=== PATIENT | female | born 1985 | race Caucasian/White ===

== ENCOUNTER → 2018-01-01 16:14 | Outpatient (CLI) | payer OTHER, MEDICAID, SELFPAY ==
[2018-01-01 16:57] LABS: Add Manual Diff / Slide Review NO; Basophils Percent Auto 0.1 % (0-2); Hematocrit 32.8 % (36-46); Hemoglobin 10.8 g/dL (12.0-16.0); Lymphocytes Percent Auto 21.8 % (25-40); Mean Corpuscular Hemoglobin 28.2 PG (26-34); Mean Corpuscular Volume 85.6 fL (80-100); Neutrophils Absolute Auto 8400 /uL (3000-5900); Neutrophils Percent Auto 71.1 % (50-75); Platelet Count 253 X10^3/uL (150-400); Red Blood Cell Count 3.83 X10^6/uL (4.0-5.2); Red Cell Distribution Width 13.6 % (11.6-14.8); White Blood Cell Count 11.8 X10^3/uL (4.5-11.0)
[2018-01-01 18:13] LABS: Hepatitis B Surface Antigen NEGATIVE s/c (NEGATIVE); Rubella Antibody IgG 74.3 IU/mL (>15)
[2018-01-01 18:25] LABS: Appearance Urine UA CLEAR; Bilirubin Urine UA NEGATIVE (NEGATIVE); Color Urine UA YELLOW; Glucose Urine UA NEGATIVE (Normal); Ketones Urine UA NEGATIVE (NEGATIVE); Leukocyte Esterase Urine UA TRACE (NEGATIVE); Nitrite Urine UA Negative (Negative); Occult Blood Urine UA NEGATIVE (Negative); Protein Urine UA NEGATIVE (Negative); Urobilinogen Urine UA 0.2 E.U./dL (0.2)
[2018-01-01 18:41] LABS: HIV 1 and 2 Antibody NEGATIVE (NEGATIVE); Hep C Virus Ab w/Reflex Quant NEGATIVE s/c (NEGATIVE)
[2018-01-01 18:44] LABS: RBC Urine None Seen (0-5/HPF)
[2018-01-01 18:46] LABS: WBC Urine 1-5/HPF (0-5/HPF)
[2018-01-01 18:47] LABS: Amorphous Sediment Urine 1+; Bacteria Urine Occasional (0-1); Squamous Epithelial Cell Urine 1-5 /HPF
[2018-01-03 13:50] LABS: HSV 2 IGG AB 6.38 index (< 0.90)
[2018-01-09 09:43] LABS: Rapid Plasma Reagin NON-REACTIVE
== END ==
PROVIDERS: PCP Family Medicine; Visit Provider Family Medicine
DX: Z34.90 Encounter for supervision of normal pregnancy, unspecified, unspecified trimester (principal)
CPT/HCPCS: 36415; 80055; 81003; 81015; 86695; 86696; 86703; 86787; 86803; 86850; 86900; 86901; 87086

== ENCOUNTER → 2018-01-30 14:02 | Outpatient (CLI) | payer OTHER, MEDICAID, SELFPAY ==
--- NOTE | 2018-01-30 14:03 | DI.US.S_ITS ---
PROCEDURE: US OB >= 14 WEEKS FETUS INDICATIONS: anatomy scan 18-20 weeks OUTSIDE/PRIOR DATING DATA: Last menstrual period (LMP): Unknown. LMP-based estimated date of delivery (IONA): N./A. First dating scan (date and location): 12/30/17. Estimated date of delivery (IONA) from first dating scan: 06/24/18. TECHNIQUE: Real-time scanning was performed of the fetus, with image documentation and biometric measurements. Endovaginal scanning: No COMPARISON: [facility], , OB >= 14 WK FETUS ADD GEST, 01/06/2018, 16:38. FINDINGS: General: A single living intrauterine gestation is present. Presentation: Vertex. Placenta: Placental position is posterior, without previa. Amniotic fluid index: 15.2 cm, normal range is 5-24 cm. heart rate: 149 beats per minute. Maternal cervical canal: 3.7 cm long. Normal lower limit is 2.5 cm. biometrics: Biparietal diameter: 20 weeks 1 day Head circumference: 19 weeks 4 days Abdominal circumference: 19 weeks 1 day Femur length: 18 weeks 6 days Estimated gestational age from initial scan: 19 weeks 2 days Composite gestational age from present scan: 19 weeks 3 days Estimated weight and percentile: 275 g; 36 percentile Measurement variability for biometric dating: +/- 7 days from 14 weeks to 15 weeks 6 days gestation, +/- 10 days from 16 weeks to 21 weeks 6 days gestation, +/- 2 weeks from 22 weeks to 27 weeks 6 days gestation, +/- 3 weeks for 28 weeks gestation or later. weight reference: 4500 g or EFW >90/95% is considered macrosomia or large for gestational age. EFW <10% is small for gestational age. EFW 5% or less is considered intra-uterine growth restriction. Anatomic survey: Neuro: Ventricles are non-dilated at less than 10 mm. Cisterna magna is normal at 3-11 mm. Cerebellum is normal in size and morphology. Nuchal skin fold: Normal at less than 6 mm between 14-21 weeks gestational age. Face: Nose and lips, facial profile are normal. Spine: No evidence for spina bifida. Heart: 4-chambered heart is present, with normal ventricular outflow tracts. Diaphragm: Diaphragm is intact. Stomach: Left-sided stomach is present. Kidneys: No hydronephrosis. Normal is less than 5 mm in 2nd trimester, less than 7 mm in 3rd trimester. Cord: 3-vessel cord has orthotopic insertion. Bladder: Normal in size. Extremities: All 4 extremities identified. IMPRESSION: 1. Single living IUP redemonstrated and interval growth is normal. 2. Normal anatomic survey. Dictated by: Ernie HEREDIA Interpreted: Renny Wynn MD on 01/30/2018 at 15:35 Approved by: Renny Wynn M.D. on 02/02/2018 at 9:54
== END ==
PROVIDERS: PCP Family Medicine; Visit Provider Family Medicine
DX: Z34.92 Encounter for supervision of normal pregnancy, unspecified, second trimester (principal); Z36.89 Encounter for other specified antenatal screening; Z3A.19 19 weeks gestation of pregnancy
CPT/HCPCS: 76811

== ENCOUNTER → 2018-04-03 11:14 | Outpatient (CLI) | payer OTHER, MEDICAID, SELFPAY ==
[2018-04-03 13:23] LABS: Hematocrit 31.9 % (36-46); Hemoglobin 10.6 g/dL (12.0-16.0)
[2018-04-03 13:47] LABS: GTT (PREG) 1 Hour PP 50gm Dose 72 mg/dL (76-139)
== END ==
PROVIDERS: PCP Family Medicine; Visit Provider Family Medicine
DX: Z34.92 Encounter for supervision of normal pregnancy, unspecified, second trimester (principal)
CPT/HCPCS: 36415; 82950; 85014; 85018

== ENCOUNTER → 2018-05-25 10:46 | Outpatient (CLI) | payer OTHER, MEDICAID, SELFPAY ==
[2018-05-26 08:43] LABS: Strep Grp B PCR NEG for Grp B Strep
== END ==
PROVIDERS: PCP Family Medicine; Visit Provider Family Medicine
DX: Z34.93 Encounter for supervision of normal pregnancy, unspecified, third trimester (principal)
CPT/HCPCS: 87653

== ENCOUNTER 2018-06-08 00:11 | Outpatient (CLI) | payer OTHER, MEDICAID, SELFPAY ==
--- NOTE | 2018-06-08 01:13 | PM.OBTRLD ---
Visit Information Visit Information Date of evaluation: 06/08/18 Primary OB Provider: Alla Perez On-call OB Provider: Letty Lambert Reason for Evaluation: Yes rule out labor PFSH Medical History Anemia (Chronic 2016) Anorexia nervosa (Chronic 1995) Anxiety (Chronic 2007) Bipolar disorder (Chronic 2009) Depression (Chronic 2007) PTSD (post-traumatic stress disorder) (Chronic 2009) Scoliosis (Chronic 1993) Substance abuse (Chronic 2013) Chicken pox (Resolved 1994) Spontaneous vaginal delivery (Resolved) Surgical History No history of previous surgery (Resolved 03/2017) Family History Brother Age: 28 Mental health problem Grandmother Age: 74 Hypertension High cholesterol Mental health problem Stroke Diabetes mellitus Mother Age: 51 Hypertension Mental health problem Grandfather No problems noted. Evaluation Evaluation Baseline heart rate: 130 Variability: Moderate (11-25) monitor accelerations: Present monitor decelerations: Absent Contraction Frequency (minutes): 9 Uterine Contraction Intensity: Mild Category of Tracing: I Cervical dilation (cm): 2 Cervical effacement (%): 40 station: -3 Diagnosis, Plan/Disposition Final Diagnosis (1) 37 weeks gestation of : Current Visit: Yes Status: Acute Plan/Disposition Plan: Patient presented to the center due to contractions. No cervical change after 1 hour. Follow up in clinic or return to center for labor, bleeding or ROM.
== END 2018-06-08 01:08 | disposition home or self-care (01) ==
LOC: OB 06-10 08:42
PROVIDERS: PCP Family Medicine
DX: O47.1 False labor at or after 37 completed weeks of gestation (principal); Z3A.37 37 weeks gestation of pregnancy
CPT/HCPCS: 59025; G0378; G0379

== ENCOUNTER 2018-06-18 18:37 | Outpatient (CLI) | payer OTHER, MEDICAID, SELFPAY ==
[2018-06-18 19:02] LABS: Add Manual Diff / Slide Review NO; Eosinophils Percent Auto 1.7 % (2-4); Hematocrit 30.4 % (36-46); Hemoglobin 9.9 g/dL (12.0-16.0); Lymphocytes Percent Auto 19.6 % (25-40); Mean Corpuscular HGB Conc 32.5 % (30-36); Mean Corpuscular Hemoglobin 25.4 PG (26-34); Mean Corpuscular Volume 78.2 fL (80-100); Neutrophils Absolute Auto 10900 /uL (1500-7000); Neutrophils Percent Auto 71.7 % (50-75); Platelet Count 292 X10^3/uL (150-400); Red Blood Cell Count 3.89 X10^6/uL (4.0-5.2); Red Cell Distribution Width 14.6 % (11.6-14.8); White Blood Cell Count 15.2 X10^3/uL (4.5-11.0)
[2018-06-18 20:01] LABS: Urine Amphetamines Negative (Negative); Urine Barbiturates Negative (Negative); Urine Benzodiazepines Negative (Negative); Urine Cocaine Negative (Negative); Urine MDMA Negative (Negative); Urine Methadone Negative (Negative); Urine Methamphetamines Negative (Negative); Urine Morphine/Opi cutoff 2000 Negative (Negative); Urine Oxycodone Negative (Negative); Urine Phencyclidine Negative (Negative); Urine Tetrahydrocannabinol Negative (Negative); Urine Tricyclic Antidepressant Negative (Negative)
== END 2018-06-18 19:51 | disposition home or self-care (01) ==
LOC: OB 06-22 14:48
PROVIDERS: PCP Family Medicine; Visit Provider Obstetrics & Gynecology
DX: Z34.83 Encounter for supervision of other normal pregnancy, third trimester (principal); Z3A.39 39 weeks gestation of pregnancy
CPT/HCPCS: 59025; 80305; 85025; 86850; 86900; 86901; G0378; G0379

== ENCOUNTER 2018-06-20 04:18 | Inpatient (IN) | payer OTHER, MEDICAID, SELFPAY ==
[2018-06-20 05:27] LABS: Basophils Absolute Auto 100 /uL (0-100); Basophils Percent Auto 0.5 % (0-2); Eosinophils Absolute Auto 300 /uL (0-450); Eosinophils Percent Auto 1.7 % (2-4); Hemoglobin 9.7 g/dL (12.0-16.0); Lymphocytes Absolute Auto 3700 /uL (1100-4500); Lymphocytes Percent Auto 24.7 % (25-40); Mean Corpuscular HGB Conc 32.2 % (30-36); Mean Corpuscular Hemoglobin 25.1 PG (26-34); Monocytes Absolute Auto 900 /uL (0-900); Monocytes Percent Auto 6.3 % (3-14); Neutrophils Absolute Auto 10100 /uL (1500-7000); Neutrophils Percent Auto 66.8 % (50-75); Platelet Count 281 X10^3/uL (150-400); Red Blood Cell Count 3.85 X10^6/uL (4.0-5.2); Red Cell Distribution Width 14.5 % (11.6-14.8); White Blood Cell Count 15.1 X10^3/uL (4.5-11.0)
--- NOTE | 2018-06-20 05:32 | P.HPOB_ITS ---
OB HPI Date/Time Date of admission: 06/20/18 Date Patient Seen: 06/20/18 Time Patient Seen: 05:30 History of Present Condition Chief complaint: EVALUATION OF LABOR : 7 Para: 4 Estimated Date of Delivery: 06/25/18 Estimated Gestational Age (weeks): 39w2d Narrative: Rosanne Hernandez is a 33 year old who presented with painful contractions. The pt reports having contractions starting at approximately 3am. They have increased in frequency and intensity since then. No vaginal bleeding or LOF. She is feeling baby move regularly. Indications Other reason(s) for admission: regular contractions History of Present care: limited care, initiated at week # (16) and number of visits (8) Dating criteria: based on 1st trimester US only Ultrasounds: normal mid trimester US Obstetrical complications: none Medical complications: genitourinary (hx of HSV on Acyclovir) and psychiatric ( anxiety/depression on bupropion and buspirone) Narrative: Ongoing tobacco use during Preadmission Labs Blood type: A (+) positive -: Antibody screen: negative, GBS status: negative, HBsAG: negative, HIV: negative, HSV 1: positive, HSV 2: positive and RPR/VDLR: negative -: Rubella: immune and Varicella: immune HCT: 32.8 HCAB: negative Urine: negative 1 hr GTT: 72 Prior (ies) History: 10/20/2005 - at 40wks, 0qh85ml male, no complications 01/05/2010 - at 38wks, [id number] female, no complications 06/02/2012 - at 37wks, 7lb2oz female, no complications 11/23/16 - at 38wks, 7lb1oz female, no complications 2x SAB, unknown dates. Both requiring D&C. Evaluation Evaluation Baseline heart rate: 130 Variability: Moderate (11-25) monitor accelerations: Present monitor decelerations: Absent Contraction Frequency (minutes): 5 Uterine Contraction Intensity: Strong/Firm Category of Tracing: I Cervical dilation (cm): 7 Cervical effacement (%): 100 station: 0 PFSH Medical History Term (Acute) Tobacco use during (Acute) Generalized anxiety disorder (Chronic 03/28/17) Depression (Chronic 06/25/17) Anemia (Chronic 2016) Anorexia nervosa (Chronic 1995) Anxiety (Chronic 2007) Bipolar disorder (Chronic 2009) Depression (Chronic 2007) PTSD (post-traumatic stress disorder) (Chronic 2009) Scoliosis (Chronic 1993) Substance abuse (Chronic 2013) Chicken pox (Resolved 1994) Spontaneous vaginal delivery (Resolved) Surgical History No history of previous surgery (Resolved 03/2017) Family History Brother Age: 28 Mental health problem Grandmother Age: 74 Hypertension High cholesterol Mental health problem Stroke Diabetes mellitus Mother Age: 51 Hypertension Mental health problem Grandfather No problems noted. Meds Home Medications Medication Instructions Recorded Confirmed Type ibuprofen 600 mg PO Q6HP PRN #30 tab 11/24/16 05/25/18 Rx naltrexone microspheres [Vivitrol] #1 08/27/17 05/25/18 History sertraline 25 mg tablet 25 mg PO DAILY #60 tab 01/06/18 05/25/18 Rx nicotine 14 mg/24 hr daily 1 patch TRANSDERMAL DAILY #21 each 01/30/18 05/25/18 Rx transdermal patch bupropion HCl SR 100 mg tablet,12 100 mg PO TID #90 tab 05/22/18 05/25/18 Rx hr sustained-release acyclovir 400 mg tablet 400 mg PO BID #60 tab 06/08/18 Rx buspirone 10 mg tablet 20 mg PO BID #120 tab 06/15/18 Rx Allergies Allergy/AdvReac Type Severity Reaction Status Date / Time codeine [CODEINE] Allergy Unknown Verified 05/25/18 10:28 Exam Narrative Exam Narrative: Gen: NAD, laying comfortably in bed, appears well but fatigued CV: RRR, no murmurs Resp: clear to auscultation bilaterally Abd: soft, nondistended, normoactive bowel sounds Ext: trace edema Objective Labs Result Diagrams: 06/20/18 04:35 Assessment and Plan (1) Term : Current visit: Yes Status: Acute (2) Tobacco use during : Current visit: Yes Status: Acute (3) Generalized anxiety disorder: Onset Date: 03/28/17 Current visit: Yes Status: Chronic (4) Depression: Onset Date: 06/25/17 Current visit: Yes Status: Chronic Plan: Plan: 33yo at 39w2d who presented in active labor. complicated by ongoing tobacco use and anxiety/depression on antidepressants. Pt also with hx of HSV on Acyclovir. GBS negative, Rh positive. - Expectant management, anticipate - GBS negative, no prophylaxis indicated - FHT reassuring - Epidural for pain control now
[2018-06-20 06:26] LABS: Add Manual Diff / Slide Review NO
--- NOTE | 2018-06-20 07:28 | PM.OBPRVD ---
Delivery date: 06/20/18 Intrapartal events: None Cervical ripening method: none Induction method: none Delivery augmentation: rupture of membranes Delivery monitor: external FHT Route of delivery: Episiotomy description: None L&D Laceration Description: None Estimated blood loss (mL): 250 Anesthesia type: Epidural Complications: None Narrative: PROCEDURE: Charles Grimaldo at 39w2d presented in active labor and was admitted to Labor and Delivery. The patient progressed through the 1st stage over 4 hours. Pain was controlled with an epidural. AROM was performed with production of clear fluid. The patient progressed through the 2nd stage over 10 minutes and delivered a viable male with APGARs 8/9 at 7:04 via without complications. The perineum and vagina were inspected with no lacerations noted. PREPROCEDURE DIAGNOSIS: Intrauterine at 39w2d Anxiety/Depression Tobacco abuse Hx of HSV GBS negative RH positive POSTPROCEDURE DIAGNOSIS: Intrauterine at 39w2d, delivered Same as preprocedure Spontaneous vaginal delivery ROM APPEARANCE: Clear BABY A DELIVERY TIME: 7:04 BABY A WEIGHT: 7lb1.3oz, 3212g BABY A NUCHAL CORD: No BABY A CORD GASES OBTAINED: No PLACENTA DELIVERY TIME: 7:12 PLACENTA APPEARANCE: Intact [place] Baby 1: gender: Male Presentation: vertex position: Right Occiput Anterior Placenta delivery description: Spontaneous cord vessel description: 3 Vessels score (1 min): 8 score (5 min): 9 Plan for aftercare: Normal care support
[2018-06-20] MEDS: METHYLERGONOVINE 0.2 MG TABLET PO ×4 (09:30→23:26)
[2018-06-20] MEDS: IBUPROFEN 600 MG TABLET PO ×3 (11:07→23:26)
[2018-06-20] MEDS: PRENATAL VIT,CALC/IRON/FOLIC 1 TABLET 1 TAB PO (13:33)
[2018-06-20] MEDS: DOCUSATE 250 MG CAPSULE PO (13:33)
[2018-06-21] MEDS: IBUPROFEN 600 MG TABLET PO (05:17)
[2018-06-21 05:26] LABS: Hematocrit 25.1 % (36-46)
[2018-06-21] MEDS: ACETAMINOPHEN 325 MG TABLET 650 MG PO (08:01)
[2018-06-21 10:04] VITALS: BP 131/82; PULSE 81; RESP 16; TEMP 36.9
--- NOTE | 2018-06-21 10:10 | P.DS_ITS ---
Discharge Providers Date of admission: 06/20/18 04:18 Primary care physician: Alla Perez MD Consults: 06/20/18 08:04 Consult to [facility] Consultant Routine Comment: Discharge provider: Alla Perez MD Discharge Date: 06/21/18 Summary Date Patient Seen: 06/21/18 Time Patient Seen: 10:00 Hospital Course: The patient presented to Labor and delivery in active labor. She received an epidural for pain control. AROM was performed with production of clear fluid. The patient progressed to complete and has spontaneous vaginal delivery of a viable baby boy at 7:04 a.m. on 06/20/2018. There are no lacerations. The patient tolerated delivery well. , the patient did have brisk bleeding. She received 4 doses of p.o. Methergine which controlled the bleeding. Her lochia then decreased appropriately. There are no additional complications. At the time of discharge, she was voiding, ambulating , passing flatus without difficulty. She was breast feeding with good latch. She will follow up in clinic in 6 weeks for her check. Two Plendil a Mirena IUD for control. She will continue her iron supplement at home to help with anemia. Peripartum Data Infant Delivery Method: Natural Vaginal Laceration description: None Episiotomy description: None Procedures: Spontaneous vaginal delivery complications: none [place] 1: Gender: Male Disposition of : home Discharge Diagnosis (1) Term : Status: Acute (2) Tobacco use during : Status: Acute (3) Generalized anxiety disorder: Status: Chronic (4) Depression: Status: Chronic (5) Spontaneous vaginal delivery: Status: Acute (6) Acute blood loss anemia: Status: Acute Status at Discharge Functional status at discharge: independent ambulation Overall status at discharge: patient is progressing back to baseline Time Spent with Patient Total time spent providing and/or coordinating discharge services: Greater than 30 minutes Time spent discussing smoking cessation with patient: 3 to 10 minutes Objective Labs Result Diagrams: 06/21/18 05:08 Labs: Laboratory Results - last 24 hr 06/21/18 05:08 Hgb 8.0 L Hct 25.1 L Discharge Plan Discharge Plan Patient Disposition: Home Discharge Med Rec/Prescriptions Prescriptions: New acetaminophen 325 mg Tablet 650 mg PO Q6HR PRN (Reason: Pain, Mild (1-3)) Qty: 30 RF: 0 benzocaine-menthol [Dermoplast (with menthol)] 20-0.5 % Aerosol 1 spray Topical Q1HR PRN (Reason: perineal pain) Qty: 15 RF: 0 docusate sodium 250 mg Capsule 250 mg PO DAILY Qty: 30 RF: 0 lanolin [[id number]] Cream 1 applic Topical PRN PRN (Reason: Tenderness) Qty: 15 RF: 0 ferrous gluconate 324 mg (38 mg iron) Tablet 324 mg PO DAILY Qty: 30 RF: 0 vit,[id number] [Prenatabs Rx] 29 mg iron- 1 mg Tablet 1 tab PO DAILY Qty: 30 RF: 0 Continue ibuprofen 600 MG tablet 600 mg PO Q6HP PRNQty: 30 RF: 0 bupropion HCl [Wellbutrin SR] 100 mg tablet sustained-release 12 hr 100 mg PO TID Qty: 90 RF: 0 buspirone 10 mg tablet 20 mg PO BID Qty: 120 RF: 0 acyclovir 400 mg tablet 400 mg PO BID Qty: 60 RF: 0 nicotine 14 mg/24 hr patch 24 hour 1 patch Transdermal DAILY Qty: 21 RF: 1 Discontinued naltrexone microspheres [Vivitrol] 380 MG suspension,extended rel recon Qty: 1 RF: 0 sertraline 25 mg tablet 25 mg PO DAILY Qty: 60 RF: 0 Follow up/Referrals: Alla Perez MD [Primary Care Provider] - 6 Weeks (Please call for your 6 week check up :)) Provider Discharge Instructions Diet: Diet as Tolerated and Regular Activity: No intercourse for 6 weeks Gradual return to normal activities Skin/Wound/Dressing Care Report to your healthcare provider any signs of infection, such as:: chills, fever, increased pain and unusual drainage Visit Report/Discharge Packet Instructions: DI for Labor and Delivery, Vaginal Visit Report Forms: Stroke Signs & Symptoms Discharge Data Primary Care Provider: Alla Perez Attending Provider: Alla Perez Admit Date/Time: 06/20/18 04:18
== END 2018-06-21 10:40 | disposition home or self-care (01) | DRG 806 ==
PROVIDERS: Admitting Provider Family Medicine; PCP Family Medicine; Visit Provider Family Medicine
DX: O99.334 Smoking (tobacco) complicating childbirth (principal); O98.32 Other infections with a predominantly sexual mode of transmission complicating childbirth; Z37.0 Single live birth; Z3A.39 39 weeks gestation of pregnancy; O99.343 Other mental disorders complicating pregnancy, third trimester; F32.9 Major depressive disorder, single episode, unspecified; F41.9 Anxiety disorder, unspecified; A60.00 Herpesviral infection of urogenital system, unspecified
CPT/HCPCS: 01967; 36415; 59050; 59400; 85014; 85018; 85025; 86850; 86900; 86901; G0379

== ENCOUNTER 2020-07-26 12:33 | Emergency (ER) | payer OTHER, MEDICAID, SELFPAY ==
[2020-07-26 12:41] VITALS: BP 117/78; PULSE 77; RESP 17; TEMP 36.5; O2SAT 99; BMI 21.4
--- NOTE | 2020-07-26 12:59 | ED.HEATRA ---
HPI - Head Injury <Joy Todd PA-C - Last Filed: 07/26/20 15:18> General Chief complaint: Head Injury Stated complaint: poss broken nose Time Seen by Provider: 07/26/20 12:59 Source: patient Mode of arrival: Ambulatory Limitations: no limitations History of Present Illness HPI Narrative: This is a well-appearing 35-year-old who presents with complaint of possible nose fracture. She was sledding with kids on Friday 3 days ago and there was ?abdominal affect and my daughter's head slammed back in my face and hit my nose.She says that she did feel immediately a little bit dizzy and that she started gushing blood from her nose they were able to get the blood stopped quickly and they went home. She states that she did have some bruising at the top and sides of her nose and significant swelling that has improved quite a bit but she still feels that things are swollen. She has been taking Tylenol for pain she says her pain is not too bad but she does feel ?pressure in the top of her nose and in her low forehead still?. Since the injury she has not had any ongoing bleeding she also denies any headache, dizziness, vision changes, neck pain, loss of consciousness or any other symptoms. MD Complaint: head injury, head pain and other (Nose pain) Onset (ago): day(s) (3) Mechanism of Injury: other (Blunt trauma from child's head hitting her face) Place: outdoors Loss of Consciousness: no Location of injury: frontal Severity: moderate Severity scale (1-10): 2 Quality: dull and other (Pressure) Radiation: none Other Injuries: none Associated symptoms: denies other symptoms Related Data Previous Rx's Medication Instructions Recorded nicotine 14 mg/24 hr daily 1 patch TRANSDERMAL DAILY #21 each 01/30/18 transdermal patch acetaminophen 650 mg PO Q6HR PRN #30 tab 06/21/18 docusate sodium 250 mg PO DAILY #30 cap 06/21/18 ferrous gluconate 324 mg PO DAILY #30 tab 06/21/18 bupropion HCl 100 mg tablet,12 hr See Rx Instructions .ROUTE 03/31/20 sustained-release .COMPLEX #90 tab buspirone 10 mg tablet See Rx Instructions .ROUTE 06/30/20 .COMPLEX #90 tab Allergies Allergy/AdvReac Type Severity Reaction Status Date / Time codeine [CODEINE] Allergy Unknown Verified 08/07/18 08:36 Review of Systems <Joy Todd PA-C - Last Filed: 07/26/20 15:18> Review of Systems Narrative: GENERAL: Denies chills, fatigue, malaise, fever, sweats. HEENT: Denies sinus pain, ear pain, sore throat, difficulty swallowing, dizziness. RESPIRATORY: Denies dyspnea, cough, wheezing, hemoptysis, sputum. CARDIOVASCULAR: Denies chest pain, palpitations, orthopnea, edema, GASTROINTESTINAL: Denies nausea, vomiting, abdominal pain, diarrhea, constipation, melena. : Denies dysuria, frequency, incontinence, hematuria, urinary retention. MUSCULOSKELETAL: denies weakness, joint pain, or bony pain SKIN: Denies rash, endorses slight bruising that has improved of her nose and some swelling of her nose that is still present skin lesions, or other NEUROLOGIC: Denies weakness, headache, numbness, change in speech, confusion, seizures, incoordination. PSYCHIATRIC: No concerning psychosocial issues. 12 point review of systems is negative except for those stated above ROS Unobtainable: All systems reviewed & are unremarkable except as noted in HPI and below Patient History <Joy Todd PA-C - Last Filed: 07/26/20 15:18> Medical History Anemia (2016) Anorexia nervosa (1995) Anxiety (2007) Bipolar disorder (2009) Chicken pox (1994) Depression (06/25/17) Depression (2007) Generalized anxiety disorder (03/28/17) PTSD (post-traumatic stress disorder) (2009) Scoliosis (1993) Spontaneous vaginal delivery Substance abuse (2013) Term Tobacco use during Surgical History No history of previous surgery (03/2017) Family History Brother Age: 30 Mental health problem Grandmother Age: 76 Hypertension High cholesterol Mental health problem Stroke Diabetes mellitus Mother Age: 53 Hypertension Mental health problem Grandfather No problems noted. Social History Smoking Status: Current every day smoker Smoking Status: Current every day smoker alcohol intake frequency: 0-2 drinks per day Substance Use Type: does not use Exam <HENRI Qureshi Last Filed: 07/26/20 15:18> Narrative Exam Narrative: GENERAL: 35 year old patient appears stated age. Well-nourished, well-developed patient, in mild distress. HEAD: Atraumatic. Normocephalic. EYES: Pupils equal round and reactive. Extraocular motions intact. No scleral icterus. No injection or drainage. ENT: Nose without bleeding, purulent drainage. No septal deviation, no evidence of recent hematoma or injury to nasal mucosa or turbinates. Nasal bones stable on exam. Jaw with normal occlusion. No oral injuries noted. Throat without erythema, tonsillar hypertrophy or exudate. Airway patent. NECK: Trachea midline. Non tender CARDIOVASCULAR: Regular rate and rhythm without murmurs, gallops, or rubs. RESPIRATORY: Clear to auscultation. Breath sounds equal bilaterally. No wheezes, rales, or rhonchi. EXTREMITIES: No edema or joint tenderness. BACK: Nontender without deformity or crepitance. No flank tenderness. No C-spine tenderness. Normal range of motion of the neck pain free. NEURO: AOx3. SKIN: No rash or erythema of visible areas Initial Vital Signs Initial Vital Signs: Vital Signs Temperature 97.7 F 07/26/20 12:41 Pulse Rate 77 07/26/20 12:41 Respiratory Rate 17 07/26/20 12:41 Blood Pressure 117/78 07/26/20 12:41 Pulse Oximetry 99 07/26/20 12:41 <Melissa Limon DO - Last Filed: 07/29/20 19:12> Initial Vital Signs Initial Vital Signs: Vital Signs Temperature 97.7 F 07/26/20 12:41 Pulse Rate 77 07/26/20 12:41 Respiratory Rate 17 07/26/20 12:41 Blood Pressure 117/78 07/26/20 12:41 Pulse Oximetry 99 07/26/20 12:41 Scores <HENRI Qureshi Last Filed: 07/26/20 15:18> GCS [place] coma scale eye opening: Spontaneous [place] coma scale verbal response: Orientated [place] coma scale motor response: [place] commands [place] coma scale total score: 15 Course <HENRI Qureshi Last Filed: 07/26/20 15:18> Vital Signs Vital signs: Vital Signs - 8 hr 07/26/20 12:41 Temperature 97.7 F Pulse Rate 77 Respiratory Rate 17 Blood Pressure 117/78 Pulse Oximetry 99 <Melissa Limon DO - Last Filed: 07/29/20 19:12> Vital Signs Vital signs: Vital Signs - 8 hr 07/26/20 12:41 Temperature 97.7 F Pulse Rate 77 Respiratory Rate 17 Blood Pressure 117/78 Pulse Oximetry 99 MDM - Head Injury <Joy Todd PA-C - Last Filed: 07/26/20 15:18> Differential Diagnosis Differential diagnosis: Likely concussion without loss of consciousness, closed head injury and other (Nasal fracture, contusion) Medical Records Attestation: I reviewed the patient's medical records. [facility] Narrative Medical decision making narrative: Well-appearing 35-year-old presents with complaint of swelling of her nose and concern for possible fracture after her child smashed her her head into the front of her face injuring her nose while sledding 3 days ago. She has had no ongoing concerning symptoms, had no loss of consciousness, exam is unremarkable she does have some mild swelling about her nose and some associated tenderness but nasal bones are stable. Discussed x-ray for further evaluation but patient preferred to skip this. This is reasonable as I have low suspicion for fracture. She has been taking Tylenol for pain I advised it is reasonable to take Tylenol and ibuprofen. Her pain has been mild. Advised her to follow-up with her primary care provider. She has no periorbital hematoma or other concerning symptoms for facial bone fracture. Emergency return precautions provided, all questions answered, follow-up plan discussed. Discharge Plan Departure Patient Disposition: Home Clinical Impression: Face pain Blunt trauma of nose Qualifiers: Encounter type: initial encounter Qualified Code(s): S09.92XA - Unspecified injury of nose, initial encounter Instructions: DI for Closed Head Injury Activity Restrictions/Additional Instructions: Thank you for letting us be part of your care in the emergency department today. We did discuss potentially doing x-rays to further evaluate your nasal bones but you declined this today I definitely think that is reasonable as your exam shows a little bit of mild swelling still but your nasal bones feel stable. You do not have any significant bruising and I anticipate that you should probably heal up well from this when the swelling goes down completely you can certainly consider following up with your primary care provider for a recheck. If you do start having a bloody nose/new drainage from her nose or dizziness or lightheadedness or severe headaches or new or concerning symptoms please do not hesitate to get recheck. I do recommend continuing Tylenol and ibuprofen for pain and swelling at this point ice may have less utility since your injury happened a few days ago. Prescriptions: No Action bupropion HCl 100 mg tablet sustained-release 12 hr See Rx Instructions .ROUTE .COMPLEX Qty: 90 RF: 0 buspirone 10 mg tablet See Rx Instructions .ROUTE .COMPLEX Qty: 90 RF: 0 nicotine 14 mg/24 hr patch 24 hour 1 patch Transdermal DAILY Qty: 21 RF: 1 acetaminophen 325 mg Tablet 650 mg PO Q6HR PRN (Reason: Pain, Mild (1-3)) Qty: 30 RF: 0 docusate sodium 250 mg Capsule 250 mg PO DAILY Qty: 30 RF: 0 ferrous gluconate 324 mg (38 mg iron) Tablet 324 mg PO DAILY Qty: 30 RF: 0 Referrals: Alla Perez MD [Primary Care Provider] - <Melissa Limon DO - Last Filed: 07/29/20 19:12> Cosign ED Attending Cosignature Attestation: I was immediately available in the department for consultation. Documentation has been reviewed. Case was discussed.
== END 2020-07-26 13:36 | disposition home or self-care (01) ==
PROVIDERS: Emergency Provider Student in an Organized Health Care Education/Training Program; PCP Family Medicine
DX: S09.92XA Unspecified injury of nose, initial encounter (principal); R51.9 Headache, unspecified; W51.XXXA Accidental striking against or bumped into by another person, initial encounter
CPT/HCPCS: 99281

== ENCOUNTER → 2020-08-16 14:17 | Outpatient (CLI) | payer OTHER, MEDICAID, SELFPAY ==
--- NOTE | 2020-08-16 14:22 | DI.RAD.S_ITS ---
PROCEDURE: XR LUMBAR SPINE 2-3V INDICATIONS: LOW BACK PAIN RIGHT SIDED TECHNIQUE: 3 views of the lumbar spine were acquired. COMPARISON: None. FINDINGS: Bones: 5 [id number] vertebrae are present. There is trace retrolisthesis of L1 on L2, L2 on L3, L3 on L4, L4 on L5. Minimal disc space narrowing is present at L2-3, L3-4. No gross foraminal narrowing.. No vertebral body compression fractures. Right L4 transverse process is not definitively identified. Soft tissues: Overlying bowel gas pattern is normal. No suspicious soft tissue calcifications. IMPRESSION: Multilevel minimal retrolisthesis is present. It is noted that the right transverse process at L4 is not visualized. While this could be obscured secondary to overlying bowel gas, recommend further evaluation with MRI to exclude presence of osseous lesion. Dictated by: Ava Nieves M.D. on 08/16/2020 at 17:13 Approved by: Ava Nieves M.D. on 08/16/2020 at 17:14
== END ==
PROVIDERS: PCP Family Medicine; Referring Provider Family Medicine; Visit Provider Family Medicine
DX: M54.41 Lumbago with sciatica, right side (principal)
CPT/HCPCS: 72100

== ENCOUNTER 2020-12-22 10:59 | Emergency (ER) | payer OTHER, MEDICAID, SELFPAY ==
[2020-12-22 11:08] VITALS: BP 110/68; PULSE 70; RESP 14; TEMP 35.8; O2SAT 99
--- NOTE | 2020-12-22 11:52 | ED.GENADULT ---
HPI - General Adult General Chief complaint: Urogenital-Female Stated complaint: needs IUD checked/taken out Time Seen by Provider: 12/22/20 11:29 History of Present Illness HPI narrative: Patient is a 35-year-old female who is here for evaluation of lower pelvic sharp discomfort. States the symptoms started last evening. She states she is not sexually active. Had an IUD placed 2 years ago. Could not feel the strings today. No vaginal bleeding. No urinary symptoms. Was cooking dinner with the symptoms started last evening. Related Data Previous Rx's Medication Instructions Recorded nicotine 14 mg/24 hr daily 1 patch TRANSDERMAL DAILY #21 each 01/30/18 transdermal patch acetaminophen 325 mg tablet 650 mg PO Q6HR PRN #30 tab 06/21/18 docusate sodium 250 mg capsule 250 mg PO DAILY #30 cap 06/21/18 ferrous gluconate 324 mg (38 mg 324 mg PO DAILY #30 tab 06/21/18 iron) tablet bupropion HCl 100 mg tablet,12 hr See Rx Instructions .ROUTE 03/31/20 sustained-release .COMPLEX #90 tab buspirone 10 mg tablet See Rx Instructions .ROUTE 06/30/20 .COMPLEX #90 tab Allergies Allergy/AdvReac Type Severity Reaction Status Date / Time codeine [CODEINE] Allergy Unknown Verified 12/22/20 11:11 Review of Systems Constitutional Constitutional: Denies fever(s) Cardiovascular Cardiovascular: Denies chest pain and Denies dyspnea Respiratory Respiratory: Denies dyspnea Gastrointestinal Gastrointestinal: Reports abdominal pain and Denies change in bowel habits Genitourinary Genitourinary: Reports system reviewed and no additional complaints, except as documented Integumentary/Breasts Skin/Breast: Reports system reviewed and no additional complaints, except as documented Neurologic Neurologic: Reports system reviewed and no additional complaints, except as documented Hematologic/Lymphatic On Anticoagulants: No Patient History Medical History Anemia (2016) Anorexia nervosa (1995) Anxiety (2007) Bipolar disorder (2009) Chicken pox (1994) Depression (06/25/17) Depression (2007) Generalized anxiety disorder (03/28/17) PTSD (post-traumatic stress disorder) (2009) Scoliosis (1993) Spontaneous vaginal delivery Substance abuse (2013) Term Tobacco use during Surgical History No history of previous surgery (03/2017) Family History Brother Age: 30 Mental health problem Grandmother Age: 76 Hypertension High cholesterol Mental health problem Stroke Diabetes mellitus Mother Age: 53 Hypertension Mental health problem Grandfather No problems noted. Social History Smoking Status: Current every day smoker Smoking Status: Current every day smoker alcohol intake frequency: 0-2 drinks per day Substance Use Type: does not use Exam Initial Vital Signs Initial Vital Signs: Vital Signs Temperature 96.5 F L 12/22/20 11:08 Pulse Rate 70 12/22/20 11:08 Respiratory Rate 14 12/22/20 11:08 Blood Pressure 110/68 12/22/20 11:08 Pulse Oximetry 99 12/22/20 11:08 Const General: cooperative and healthy appearing Resp Effort & Inspection: normal respiratory effort GI Inspection: normal to inspection and non-distended Palpation: tender (Lower abdomen) Other: Cervical Os is closed. No IUD string seen on exam. Skin General: no rashes or lesions noted Neuro General: patient alert, patient awake and patient oriented x3 Extrem General: normal to inspection and capillary refill normal Psych Appearance: grossly normal Course Orders Ordered: ED Orders 12/22/20 11:52 US pelvic complete Stat 12/22/20 12:42 Basic Metabolic Panel Stat Complete Blood Count AUTO DIFF Stat HCG Quantitative /Beta subunit Stat Vital Signs Vital signs: Vital Signs - 8 hr 12/22/20 11:08 Temperature 96.5 F L Pulse Rate 70 Respiratory Rate 14 Blood Pressure 110/68 Pulse Oximetry 99 Medical Decision Making Lab Data Lab results reviewed: Yes I reviewed the patient's lab results. Result diagrams: 12/22/20 12:42 12/22/20 12:42 Labs: Lab Results 12/22/20 12/22/20 Range/Units 12:42 12:42 WBC 8.7 (4.5-11.0) X10^3/uL RBC 4.34 (4.0-5.2) X10^6/uL Hgb 13.5 (12.0-16.0) g/dL Hct 40.6 (36-46) % MCV 93.5 (80-100) fL MCH 31.0 (26-34) PG MCHC 33.2 (30-36) % RDW 12.9 (11.6-14.8) % Plt Count 213 (150-400) X10^3/uL Neut % (Auto) 60.2 (50-75) % Lymph % (Auto) 27.7 (25-40) % [place] % (Auto) 7.3 (3-14) % Eos % (Auto) 4.5 H (2-4) % Baso % (Auto) 0.3 (0-2) % Neut # (Auto) 5300 (0816-5803) /uL Lymph # (Auto) 2400 (8520-0039) /uL [place] # (Auto) 600 (0-900) /uL Eos # (Auto) 400 (0-450) /uL Baso # (Auto) 0 (0-100) /uL Sodium 138 (137-145) mmol/L Potassium 4.3 (3.4-5.1) mmol/L Chloride 107 (98-107) mmol/L Carbon Dioxide 25 (22-32) mmol/L BUN 11 (7-17) mg/dL Creatinine 0.50 L (0.52-1.04) mg/dL Estimated GFR > 60.0 (>60) mL/min BUN/Creatinine Ratio 22.0 (6-22) Glucose 93 (70-100) mg/dL Calcium 9.2 (8.4-10.2) mg/dL HCG, Quant < 2.4 mIU/mL Point of Care Testing Test Results Positive Urine Dip Bedside Urine Glucose Negative Bedside Urine Bilirubin - Negative Bedside Urine Ketone - Negative Urine Specific [place] 1.020 Bedside Urine Occult Blood - Negative Bedside Urine pH 6 Bedside Urine Protein - Negative Bedside Urine Urobilinogen - Negative Bedside Urine Nitrite - Negative Bedside Urine Leukocytes - Negative Esterase Point of care testing: Point of Care Testing Test Results Positive Urine Dip Bedside Urine Glucose Negative Bedside Urine Bilirubin - Negative Bedside Urine Ketone - Negative Urine Specific [place] 1.020 Bedside Urine Occult Blood - Negative Bedside Urine pH 6 Bedside Urine Protein - Negative Bedside Urine Urobilinogen - Negative Bedside Urine Nitrite - Negative Bedside Urine Leukocytes - Negative Esterase Imaging Data US - HYDRAMATIC MECHANIC: Radiologist's Impression: [address] [id number] ReportSigned Patient: Rosanne Hernandez RMR#: [id number]: 1985Acct:[id number]/Sex: 35 / FDate of Service: 12/22/20Loc: EDAccession Number: [id number] Procedure: US pelvic complete Ordering Provider: Niko Lainez D.O. PROCEDURE: US PELVIC COMPLETE INDICATIONS: PELVIC PAIN. NO IUD STRING SEEN ON PELVIC EXAM. TECHNIQUE: Real-time scanning was performed of the pelvic organs, with image documentation. Additional endovaginal scanning was necessary due to incomplete visualization of the adnexal and endometrial structures by transabdominal scanning. COMPARISON: None. FINDINGS: Uterus: Uterus is normal in size at 4.1 x 5.4 x 7.7 cm. The endometrium measures 3 mm in combined thickness. Normal position of IUD. Ovaries: The right ovary measures 2.0 x 3.0 x 3.4 centimeters. There is a minimally complex lesion in the right ovary measuring approximately 1.9 x 1.4 x 2.2 centimeters. This has a slightly thick wall with some vascularity peripherally. Other: No pathologic free abdominal or pelvic fluid. IMPRESSION: Normal position of IUD. Mildly complex lesion in the right ovary likely simply represents a physiologic cyst or resolving hemorrhagic cyst. Given the reported history of faintly positive urine test, an ectopic cannot be strictly excluded. Correlation with serial serum hCG measurement is recommended. A follow-up ultrasound could also be considered to document resolution of this abnormality. Dictated by: Keagan Chapman M.D. on 12/22/2020 at 12:38 Approved by: Keagan Chapman M.D. on 12/22/2020 at 12:40 [facility] Narrative Medical decision making narrative: Patient's urine test was faintly positive however had a negative HCG quantitative level. The IUD strings were not seen on the exam however the ultrasound did show a normal position IUD. She does have a right-sided ovarian cyst which very well could be causing her discomfort. I did discuss all this with her. We will hold on further workup for now. She will contact her primary doctor/supervisor of guidance and testing provider she would like to have the IUD removed. She was given return precautions. She expressed understanding and agreement. Discharge Plan Departure Patient Disposition: Home Clinical Impression: Pelvic pain, Ovarian cyst Instructions: DI for Ovarian Cyst, DI for Pelvic Pain Activity Restrictions/Additional Instructions: Recommend that you talk with your primary doctor/supervisor of guidance and testing provider if you would like to have your IUD removed. Return to the emergency department for any new or worsening symptoms. Continue all of your medications as directed. Prescriptions: No Action bupropion HCl 100 mg tablet sustained-release 12 hr See Rx Instructions .ROUTE .COMPLEX Qty: 90 RF: 0 buspirone 10 mg tablet See Rx Instructions .ROUTE .COMPLEX Qty: 90 RF: 0 nicotine 14 mg/24 hr patch 24 hour 1 patch Transdermal DAILY Qty: 21 RF: 1 acetaminophen 325 mg Tablet 650 mg PO Q6HR PRN (Reason: Pain, Mild (1-3)) Qty: 30 RF: 0 docusate sodium 250 mg Capsule 250 mg PO DAILY Qty: 30 RF: 0 ferrous gluconate 324 mg (38 mg iron) Tablet 324 mg PO DAILY Qty: 30 RF: 0
[2020-12-22 12:53] LABS: Add Manual Diff / Slide Review NO; Basophils Absolute Auto 0 /uL (0-100); Basophils Percent Auto 0.3 % (0-2); Eosinophils Absolute Auto 400 /uL (0-450); Eosinophils Percent Auto 4.5 % (2-4); Hematocrit 40.6 % (36-46); Hemoglobin 13.5 g/dL (12.0-16.0); Lymphocytes Absolute Auto 2400 /uL (1100-4500); Lymphocytes Percent Auto 27.7 % (25-40); Mean Corpuscular HGB Conc 33.2 % (30-36); Mean Corpuscular Volume 93.5 fL (80-100); Monocytes Absolute Auto 600 /uL (0-900); Monocytes Percent Auto 7.3 % (3-14); Neutrophils Absolute Auto 5300 /uL (1500-7000); Neutrophils Percent Auto 60.2 % (50-75); Platelet Count 213 X10^3/uL (150-400); Red Blood Cell Count 4.34 X10^6/uL (4.0-5.2); Red Cell Distribution Width 12.9 % (11.6-14.8); White Blood Cell Count 8.7 X10^3/uL (4.5-11.0)
[2020-12-22 13:13] LABS: Blood Urea Nitrogen 11 mg/dL (7-17); Calcium 9.2 mg/dL (8.4-10.2); Carbon Dioxide 25 mmol/L (22-32); Chloride 107 mmol/L (98-107); Estimated Glomerular Filt Rate > 60.0 mL/min (>60); Glucose 93 mg/dL (70-100); HEMOLYSIS < 15 (0-50); Potassium 4.3 mmol/L (3.4-5.1); Sodium 138 mmol/L (137-145)
[2020-12-22 13:29] LABS: HCG Quantitative /Beta subunit < 2.4 mIU/mL
[2020-12-22 14:08] VITALS: BP 112/67; PULSE 76; RESP 16; O2SAT 99
== END 2020-12-22 14:09 | disposition home or self-care (01) ==
PROVIDERS: Emergency Provider Emergency Medicine
DX: R10.2 Pelvic and perineal pain (principal); N83.201 Unspecified ovarian cyst, right side; Z32.01 Encounter for pregnancy test, result positive; Z97.5 Presence of (intrauterine) contraceptive device
CPT/HCPCS: 76830; 76856; 80048; 81003; 81025; 84702; 85025; 99282; 99284

== ENCOUNTER → 2021-12-24 14:42 | Outpatient (CLI) | payer OTHER, MEDICAID, SELFPAY ==
--- NOTE | 2021-12-24 14:55 | DI.RAD.S_ITS ---
PROCEDURE: XR RIBS RT MIN 3V W CXR 1V INDICATIONS: Pleurodynia TECHNIQUE: 2 views of the left ribs were acquired, along with a single view chest. COMPARISON: [facility], , CHEST 2 VIEW, 08/27/2017, 13:55. FINDINGS: Surgical changes and devices: None. Bones and chest wall: No acute displaced rib fracture. No suspicious bony lesions. Overlying soft tissues appear unremarkable. Lungs and pleura: No pleural effusions or pneumothorax. Lungs appear clear. Mediastinum: Mediastinal contours appear normal. Heart size is normal. IMPRESSION: No acute displaced rib fracture. No pneumothorax. Dictated by: Tim Roque M.D. on 12/24/2021 at 20:04 Approved by: Tim Roque M.D. on 12/24/2021 at 20:09
== END ==
PROVIDERS: PCP Physician Assistant; Referring Provider Physician Assistant; Visit Provider Physician Assistant
DX: R07.81 Pleurodynia (principal)
CPT/HCPCS: 71101

== ENCOUNTER → 2022-03-08 12:01 | Outpatient (CLI) | payer OTHER, MEDICAID, SELFPAY ==
--- NOTE | 2022-03-08 | DI.RAD.S_ITS ---
PROCEDURE: XR CHEST 2V INDICATIONS: chest pain on breathing TECHNIQUE: 2 views of the chest were acquired. COMPARISON: [facility], , CHEST 2 VIEW, 08/27/2017, 13:55. FINDINGS: Surgical changes and devices: None. Lungs and pleura: Lungs are clear. No pleural effusions or pneumothorax. Mediastinum: Mediastinal contours are normal. Heart size is normal. Bones and chest wall: No suspicious bony abnormalities. Soft tissues appear unremarkable. IMPRESSION: Chest without acute cardiopulmonary abnormalities or focal airspace disease. Dictated by: Hugo Wills M.D. on 03/08/2022 at 13:03 Approved by: Hugo Wills M.D. on 03/08/2022 at 13:08
[2022-03-08 15:17] LABS: Add Manual Diff / Slide Review NO; Basophils Absolute Auto 0 /uL (0-100); Basophils Percent Auto 0.2 % (0-2); Eosinophils Absolute Auto 700 /uL (0-450); Eosinophils Percent Auto 7.2 % (2-4); Hematocrit 42.1 % (36-46); Hemoglobin 14.4 g/dL (12.0-16.0); Lymphocytes Absolute Auto 2000 /uL (1100-4500); Lymphocytes Percent Auto 20.2 % (25-40); Mean Corpuscular HGB Conc 34.1 % (30-36); Mean Corpuscular Hemoglobin 31.5 PG (26-34); Mean Corpuscular Volume 92.2 fL (80-100); Monocytes Absolute Auto 600 /uL (0-900); Monocytes Percent Auto 6.4 % (3-14); Neutrophils Absolute Auto 6400 /uL (1500-7000); Platelet Count 237 X10^3/uL (150-400); Red Blood Cell Count 4.56 X10^6/uL (4.0-5.2); Red Cell Distribution Width 12.7 % (11.6-14.8); White Blood Cell Count 9.7 X10^3/uL (4.5-11.0)
[2022-03-08 15:46] LABS: Alanine Aminotransferase 13 IU/L (<35); Albumin 4.5 g/dL (3.5-5.0); Albumin Globulin Ratio 1.5 (1.0-2.8); Alkaline Phosphatase 93 U/L (38-126); Aspartate Aminotransferase 24 IU/L (14-36); BUN Creatinine Ratio 26.2 (6-22); Blood Urea Nitrogen 17 mg/dL (7-17); Calcium 8.7 mg/dL (8.4-10.2); Carbon Dioxide 26 mmol/L (22-32); Chloride 100 mmol/L (98-107); Cholesterol 193 mg/dL (140-199); Estimated Glomerular Filt Rate > 60 mL/min (>60); Globulin 3.1 g/dL (1.7-4.1); Glucose 75 mg/dL (70-100); HEMOLYSIS < 15 (0-50); Sodium 135 mmol/L (137-145); Total Protein 7.6 g/dL (6.3-8.2); Triglycerides 48 mg/dL (35-150)
[2022-03-08 15:58] LABS: HDL Cholesterol 117 mg/dL (40-60); LDL Cholesterol Calculated 66 mg/dL (<100)
== END ==
PROVIDERS: PCP Physician Assistant; Referring Provider Family Medicine; Visit Provider Family Medicine
DX: R07.1 Chest pain on breathing (principal); F31.62 Bipolar disorder, current episode mixed, moderate
CPT/HCPCS: 36415; 71046; 80053; 80061; 85025

== ENCOUNTER 2022-10-12 01:23 | Emergency (ER) | payer OTHER, MEDICAID, SELFPAY ==
[2022-10-12 01:34] VITALS: BP 129/82; PULSE 92; RESP 16; TEMP 36.6; O2SAT 97; BMI 20.6
--- NOTE | 2022-10-12 01:47 | ED.ABDPAIN ---
HPI - Abdominal Pain General Chief Complaint: Abdominal Pain Stated Complaint: ABD Pain Time Seen by Provider: 10/12/22 01:47 Source: patient Mode of arrival: Family Vehicle History of Present Illness HPI narrative: 37-year-old female smoker on control presents with the chief complaint of a sharp and stabbing left anterior chest pain that started yesterday in his rapidly worsening. She states it now radiates somewhat to her left side and back and is made worse by motion and deep breath. She denies any shortness of breath, cough or hemoptysis. She is had no fever or chills. She denies overuse or any traumatic injury. She denies any history of blood clot, cancer, travel or lower extremity pain, swelling or redness. Related Data Previous Rx's Medication Instructions Recorded nicotine 14 mg/24 hr daily 1 patch transdermal DAILY #21 ea 01/30/18 transdermal patch acetaminophen 325 mg tablet 650 mg PO Q6HR PRN Pain, Mild 06/21/18 (1-3) #30 tabs docusate sodium 250 mg capsule 250 mg PO DAILY #30 caps 06/21/18 ferrous gluconate 324 mg (38 mg 324 mg PO DAILY #30 tabs 06/21/18 iron) tablet bupropion HCl 100 mg tablet,12 hr See Rx Instructions .Route 03/31/20 sustained-release .COMPLEX #90 tabs buspirone 10 mg tablet See Rx Instructions .Route 06/30/20 .COMPLEX #90 tabs amoxicillin 500 mg capsule 1,000 mg PO Q8H 5 days #30 caps 10/12/22 ketorolac 10 mg tablet 10 mg PO Q6H PRN pain #14 tabs 10/12/22 Allergies Allergy/AdvReac Type Severity Reaction Status Date / Time codeine [CODEINE] Allergy Unknown Verified 12/22/20 11:11 Review of Systems Review of Systems Narrative: GENERAL: Denies chills, fatigue, malaise, fever, sweats. HEENT: Denies sinus pain, ear pain, sore throat, difficulty swallowing, dizziness. RESPIRATORY: see HPI CARDIOVASCULAR: see HPI GASTROINTESTINAL: Denies nausea, vomiting, abdominal pain, diarrhea, constipation, melena. : Denies dysuria, frequency, incontinence, hematuria, urinary retention. MUSCULOSKELETAL: denies weakness, joint pain, or bony pain SKIN: Denies rash, skin lesions, or other NEUROLOGIC: Denies weakness, headache, numbness, change in speech, confusion, seizures, incoordination. PSYCHIATRIC: No concerning psychosocial issues. 12 point review of systems is negative except for those stated above Patient History Medical History Anemia (2016) Anorexia nervosa (1995) Anxiety (2007) Bipolar disorder (2009) Chicken pox (1994) Depression (06/25/17) Depression (2007) Generalized anxiety disorder (03/28/17) PTSD (post-traumatic stress disorder) (2009) Scoliosis (1993) Spontaneous vaginal delivery Substance abuse (2013) Term Tobacco use during Surgical History No history of previous surgery (03/2017) Family History Brother Age: 32 Mental health problem Grandmother Age: 78 Hypertension High cholesterol Mental health problem Stroke Diabetes mellitus Mother Age: 55 Hypertension Mental health problem Grandfather No problems noted. Social History Smoking Status: Current every day smoker Smoking Status: Current every day smoker alcohol intake frequency: 0-2 drinks per day Substance Use Type: does not use Exam Narrative Exam Narrative: GENERAL: [37] year old patient appears stated age. Well-developed patient, in mild distress. HEAD: Atraumatic. Normocephalic. EYES: Pupils equal round and reactive. Extraocular motions intact. No scleral icterus. No injection or drainage. ENT: Nose without bleeding, purulent drainage. Throat without erythema, tonsillar hypertrophy or exudate. Airway patent. NECK: Trachea midline. Non tender CARDIOVASCULAR: Regular rate and rhythm without murmurs, gallops, or rubs. RESPIRATORY: Clear to auscultation. Breath sounds equal bilaterally. No wheezes, rales, or rhonchi. GASTROINTESTINAL: Abdomen soft, non-tender, nondistended. EXTREMITIES: No edema or joint tenderness. BACK: Nontender without deformity or crepitance. No flank tenderness. NEURO: AOx3. SKIN: No rash or erythema of visible areas Initial Vital Signs Initial Vital Signs: Vital Signs Temperature 97.8 F 10/12/22 01:34 Pulse Rate 92 H 10/12/22 01:34 Respiratory Rate 16 10/12/22 01:34 Blood Pressure 129/82 10/12/22 01:34 Pulse Oximetry 97 10/12/22 01:34 Oxygen Delivery Method Room Air 10/12/22 01:34 Course Orders Ordered: ED Orders 10/12/22 02:00 Complete Blood Count AUTO DIFF Stat Comprehensive Metabolic Panel Stat D Dimer Stat Lipase Stat 10/12/22 03:06 CT angio chest PE protocol Stat 10/12/22 03:07 CT abdomen pelvis w con Stat Discontinued Medications Hydrocodone Bitart/Acetaminophen (Hydrocodone/Acet 5/325 Prepack) 1 bottle MISC SEEINSTR ONE Stop: 10/12/22 05:52 Amoxicillin (Amoxicillin 250 Mg Capsule) 1,000 mg PO NOW ONE Stop: 10/12/22 05:45 Last Admin: 10/12/22 05:52 Dose: 1,000 mg Documented By: MITCHEL Hydromorphone HCl (Hydromorphone 0.5 Mg Inj) 0.5 mg IV NOW ONE Stop: 10/12/22 01:51 Last Admin: 10/12/22 02:06 Dose: 0.5 mg Documented By: MITCHEL Sodium Chloride (Normal Saline 0.9%) 1,000 mls @ 1,000 mls/hr IV BOLUS ONE Stop: 10/12/22 02:49 Last Infusion: 10/12/22 02:56 Dose: 0 mls/hr Documented By: Admin: 10/12/22 02:05 Dose: 1,000 mls/hr Documented By: MITCHEL Ketorolac Tromethamine (Ketorolac 30 Mg/Ml Vial) 15 mg IV NOW ONE Stop: 10/12/22 05:52 Vital Signs Vital signs: Vital Signs - 8 hr 10/12/22 01:34 10/12/22 04:22 10/12/22 05:52 Temperature 97.8 F Pulse Rate 92 H 95 H 99 H Respiratory Rate 16 20 Blood Pressure 129/82 104/56 L 140/82 Pulse Oximetry 97 97 100 Oxygen Delivery Method Room Air Room Air Room Air MDM - Abdominal Pain Lab Data 10/12/22 02:00 10/12/22 02:00 Labs: Lab Results 10/12/22 10/12/22 10/12/22 Range/Units 02:00 02:00 02:00 WBC 17.5 H (4.5-11.0) X10^3/uL RBC 3.86 L (4.0-5.2) X10^6/uL Hgb 12.0 (12.0-16.0) g/dL Hct 35.8 L (36-46) % MCV 92.9 (80-100) fL MCH 31.2 (26-34) PG MCHC 33.5 (30-36) % RDW 12.8 (11.6-14.8) % Plt Count 256 (150-400) X10^3/uL Neut % (Auto) 77.7 H (50-75) % Lymph % (Auto) 13.5 L (25-40) % [place] % (Auto) 7.0 (3-14) % Eos % (Auto) 1.5 L (2-4) % Baso % (Auto) 0.3 (0-2) % Neut # (Auto) 22084 H (8232-4252) /uL Lymph # (Auto) 2400 (3382-4792) /uL [place] # (Auto) 1200 H (0-900) /uL Eos # (Auto) 300 (0-450) /uL Baso # (Auto) 100 (0-100) /uL D-Dimer 590 H (<500) ng/ml Sodium 133 L (137-145) mmol/L Potassium 3.8 (3.4-5.1) mmol/L Chloride 104 (98-107) mmol/L Carbon Dioxide 22 (22-32) mmol/L BUN 12 (7-17) mg/dL Creatinine 0.58 (0.52-1.04) mg/dL Estimated GFR > 60 (>60) mL/min BUN/Creatinine Ratio 20.7 (6-22) Glucose 103 H (70-100) mg/dL Calcium 8.4 (8.4-10.2) mg/dL Total Bilirubin 0.8 (0.2-1.3) mg/dL AST 58 H (14-36) IU/L ALT 33 (<35) IU/L Alkaline Phosphatase 85 (38-126) U/L Total Protein 7.2 (6.3-8.2) g/dL Albumin 4.0 (3.5-5.0) g/dL Globulin 3.2 (1.7-4.1) g/dL Albumin/Globulin Ratio 1.3 (1.0-2.8) Lipase 62 (23-300) U/L Point of care testing: Point of Care Testing Test Results Negative Urine Dip Bedside Urine Glucose Negative Bedside Urine Bilirubin - Negative Bedside Urine Ketone - Negative Urine Specific [place] 1.015 Bedside Urine Occult Blood - Negative Bedside Urine pH 6 Bedside Urine Protein - Negative Bedside Urine Urobilinogen - Negative Bedside Urine Nitrite - Negative Bedside Urine Leukocytes - Negative Esterase MDM Narrative Medical decision making narrative: CC: 37-year-old female with left anterior chest pain Complicating co-morbidities: Smoker, on control Data collected from: Patient Medical records reviewed: Prior notes reviewed in our EMR Differential considered, but not limited to: Pulmonary embolism versus musculoskeletal versus gastritis versus kidney stone versus other Exam documented above, pertinent findings include: Obviously uncomfortable, guarding her left anterior chest, no obvious reproducible pain on palpation though worse with deep breath and motion Lab Test results independently reviewed as above. Pertinent findings: Independently reviewed EKG as above Imaging studies independently reviewed: Chest CTA demonstrates no pulmonary embolism but there is evidence of multifocal consolidations suspicious for pneumonia however this is on the right side as opposed to left. Abdomen and pelvis shows small right ovarian cyst and some evidence suggestive of pelvic congestion syndrome, however as noted the patient is not having abdominal or pelvic pain Scores Used: [place] (Low) PERC Treatments: Patient given Dilaudid, fluids, Toradol, amoxicillin Re-evaluations: Improved symptoms after the above-stated therapies Discussion: Patient with a sharp and stabbing left-sided pleuritic-type chest pain concerning for pneumonia versus pulmonary embolism versus other, imaging demonstrates pneumonia in the right lung and no evidence of pulmonary embolism. Symptoms likely pleuritic in inflammatory in nature. Pain is sharp, stabbing and reproducible. She is not hypoxemic, pain is well controlled, she shows no signs of sepsis and is appropriate for discharge. Disposition: see below, along with detailed discharge instructions that have been reviewed with patient as well as indications for ED re-evaluation and additional outpatient follow up Discharge Plan Departure Patient Disposition: Home Clinical Impression: Pneumonia Instructions: DI for Pneumonia -- Adult Activity Restrictions/Additional Instructions: *You have been diagnosed with [Pneumonia ] *What to do: *Please continue to take your regular medications as directed. [x ] New medication prescriptions sent to your pharmacy: [ [facility]] [ ] New medication written as a paper prescription [ ] No new medications given *Please follow up with your primary care provider in 2-3 days, call for an appointment. Let them know you were seen in the Emergency Department and that we ask that you be seen in follow up. We will electronically transmit a record of today's note if your PCP is in our system *If you do not have a primary care provider please contact the [facility] Resource line at [phone]. They will ask some questions about your medical history and help get you set up with a doctor in the community. *Return to Emergency Department if you should have any new, worsening or concerning symptoms, such as [fever greater than 101 F, shaking chills, worsening pain, persistent vomiting or other bothersome symptoms] Prescriptions: New amoxicillin 500 mg capsule 1,000 mg PO Q8H 5 Days Qty: 30 0RF ketorolac 10 mg tablet 10 mg PO Q6H PRN (Reason: pain) Qty: 14 0RF No Action bupropion HCl 100 mg tablet sustained-release 12 hr See Rx Instructions .ROUTE .COMPLEX Qty: 90 0RF Dose Instruction: TAKE 1 TABLET (100 MG) BY MOUTH THREE TIMES DAILY Rx Instructions: TAKE 1 TABLET (100 MG) BY MOUTH THREE TIMES DAILY; MUST BE SEEN FOR REFILLS buspirone 10 mg tablet See Rx Instructions .ROUTE .COMPLEX Qty: 90 0RF Dose Instruction: TAKE 2 TABLETS BY MOUTH TWICE DAILY Rx Instructions: TAKE 2 TABLETS BY MOUTH TWICE DAILY; PT MUST BE SEEN FOR REFILLS nicotine 14 mg/24 hr patch 24 hour 1 patch Transdermal DAILY Qty: 21 1RF acetaminophen 325 mg Tablet 650 mg PO Q6HR PRN (Reason: Pain, Mild (1-3)) Qty: 30 0RF docusate sodium 250 mg Capsule 250 mg PO DAILY Qty: 30 0RF ferrous gluconate 324 mg (38 mg iron) Tablet 324 mg PO DAILY Qty: 30 0RF Referrals: Savannah Aguirre PA-C [Primary Care Provider] - Stand Alone Forms: Patient Portal/API
[2022-10-12] MEDS: SODIUM CHLORIDE 0.9% 1,000 ML 1000 ML IV (02:05)
[2022-10-12] MEDS: HYDROMORPHONE 0.5 MG INJ IV (02:06)
[2022-10-12 02:14] LABS: Add Manual Diff / Slide Review NO; Basophils Absolute Auto 100 /uL (0-100); Basophils Percent Auto 0.3 % (0-2); Eosinophils Absolute Auto 300 /uL (0-450); Eosinophils Percent Auto 1.5 % (2-4); Hematocrit 35.8 % (36-46); Lymphocytes Absolute Auto 2400 /uL (1100-4500); Lymphocytes Percent Auto 13.5 % (25-40); Mean Corpuscular HGB Conc 33.5 % (30-36); Mean Corpuscular Hemoglobin 31.2 PG (26-34); Mean Corpuscular Volume 92.9 fL (80-100); Monocytes Absolute Auto 1200 /uL (0-900); Neutrophils Absolute Auto 13600 /uL (1500-7000); Neutrophils Percent Auto 77.7 % (50-75); Platelet Count 256 X10^3/uL (150-400); Red Blood Cell Count 3.86 X10^6/uL (4.0-5.2); Red Cell Distribution Width 12.8 % (11.6-14.8); White Blood Cell Count 17.5 X10^3/uL (4.5-11.0)
[2022-10-12 02:17] LABS: D Dimer 590 ng/ml (<500)
[2022-10-12 02:19] LABS: Alanine Aminotransferase 33 IU/L (<35); Albumin Globulin Ratio 1.3 (1.0-2.8); Alkaline Phosphatase 85 U/L (38-126); Aspartate Aminotransferase 58 IU/L (14-36); BUN Creatinine Ratio 20.7 (6-22); Bilirubin Total 0.8 mg/dL (0.2-1.3); Blood Urea Nitrogen 12 mg/dL (7-17); Calcium 8.4 mg/dL (8.4-10.2); Carbon Dioxide 22 mmol/L (22-32); Chloride 104 mmol/L (98-107); Estimated Glomerular Filt Rate > 60 mL/min (>60); Globulin 3.2 g/dL (1.7-4.1); Glucose 103 mg/dL (70-100); HEMOLYSIS 21 (0-50); Lipase 62 U/L (23-300); Potassium 3.8 mmol/L (3.4-5.1); Sodium 133 mmol/L (137-145); Total Protein 7.2 g/dL (6.3-8.2)
--- NOTE | 2022-10-12 03:06 | DI.CT.S_ITS ---
PROCEDURE: CT ANGIO CHEST PE PROTOCOL INDICATIONS: pleuritic LLL pain, critical dimer TECHNIQUE: After the administration of intravenous contrast, 2 mm thick sections acquired from the pulmonary apices to the posterior costophrenic angles. 3-dimensional maximum intensity projection (MIP) coronal and sagittal reformats were then acquired through the thorax. For radiation dose reduction, the following was used: automated exposure control, adjustment of mA and/or kV according to patient size. COMPARISON: None. FINDINGS: Image quality: Excellent. Pulmonary arteries: Pulmonary arteries are normal in size, and demonstrate no intraluminal filling defects to suggest central pulmonary embolism. Lungs and pleura: Focal areas multi nodular opacity are present within the lungs most notably on the left. Mediastinum: Heart size is normal, without pericardial effusion. Borderline enlarged hilar and prevascular nodes are present. Thoracic aorta is normal in caliber and enhancement. Esophagus is normal in caliber, without hiatal hernia. Bones and chest wall: No suspicious bony lesions. Ribs and thoracic spine appear intact throughout. Thyroid gland is unremarkable. No axillary or supraclavicular adenopathy. Abdomen: Visualized upper abdominal solid organs appear normal in the early arterial phase of enhancement. IMPRESSION: No pulmonary embolism. Patchy bilateral nodular like opacities are identified predominantly in the right lobe, most consistent with pneumonia. Recommend interval follow up after appropriate therapy to document resolution. Borderline enlarged hilar and prevascular nodes suspected to be reactive in nature. The above findings are concordant with preliminary report. Dictated by: Ava Nieves M.D. on 10/12/2022 at 8:32 Approved by: Ava Nieves M.D. on 10/12/2022 at 8:36
--- NOTE | 2022-10-12 03:07 | DI.CT.S_ITS ---
PROCEDURE: CT ABDOMEN PELVIS W CON INDICATIONS: LUQ / flank pain, leukocytosis TECHNIQUE: After the administration of oral and IV contrast, axial sections were acquired from the lung bases to the pubic symphysis. Coronal and sagittal reformats were performed. For radiation dose reduction, the following was used: automated exposure control, adjustment of mA and/or kV according to patient size. COMPARISON: [facility], CT, CT ANGIO CHEST PE PROTOCOL, 10/12/2022, 3:23. FINDINGS: Image quality: Excellent. Lung bases: Partially visualized nodular opacities within the lung right lung and to a lesser degree the left. Heart: No significant findings. ABDOMEN: Liver: Liver is enlarged measuring 20.7 cm with steatosis. Gallbladder: Unremarkable. Biliary ducts: Unremarkable. Pancreas: Unremarkable. Spleen: Unremarkable. Adrenal Glands: Unremarkable. Kidneys and Ureters: Unremarkable. Stomach and Bowel: Stomach, small bowel loops, and colon are nonobstructive. Moderate colonic stool is present. Peritoneum: No abnormal intraperitoneal fluid. No free air. Ventral Wall: No hernia. Abdominal Nodes: No retroperitoneal or mesenteric adenopathy by size criteria. Vessels: Aorta and inferior vena cava are normal in size. PELVIS: Pelvic Organs: Significant pelvic vasculature is noted surrounding the uterus and lower pelvic structures. Low-attenuation focus is present the right adnexa measuring 2.3 cm. Bladder: Unremarkable. Pelvic Nodes: No enlarged lymph nodes. Miscellaneous: No inguinal hernias are seen. Bones: Unremarkable. IMPRESSION: 2.3 cm right ovarian simple cyst. 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 Recommend clinical correlation. Pulmonary consolidations better visualized on CT chest report 10/12/2022. Hepatomegaly. Moderate colonic stool without obstruction. The above findings are concordant with preliminary report. Dictated by: Ava Nieves M.D. on 10/12/2022 at 8:36 Approved by: Ava Nieves M.D. on 10/12/2022 at 8:39
[2022-10-12 04:22] VITALS: BP 104/56; PULSE 95; RESP 20; O2SAT 97
[2022-10-12 05:52] VITALS: BP 140/82; PULSE 99; O2SAT 100
[2022-10-12] MEDS: AMOXICILLIN 250 MG CAPSULE 1000 MG PO (05:52)
[2022-10-12] MEDS: HYDROCODONE/ACET 5/325 PREPACK 1 BOTTLE MISC (06:01)
== END 2022-10-12 06:02 | disposition home or self-care (01) ==
PROVIDERS: Emergency Provider Emergency Medicine; PCP Physician Assistant
DX: J18.9 Pneumonia, unspecified organism (principal); R07.9 Chest pain, unspecified
CPT/HCPCS: 36415; 71275; 74177; 80053; 81003; 81025; 83690; 85025; 85379; 96374; 99284; J1170; Q9967

== ENCOUNTER 2024-01-11 18:16 | Emergency (ER) | payer OTHER, MEDICAID, SELFPAY ==
[2024-01-11] VITALS (7 sets, daily range): BP systolic 126–141; BP diastolic 64–83; PULSE 67–98; RESP 18–22; TEMP 36.8; O2SAT 99–100; BMI 19.5
--- NOTE | 2024-01-11 18:42 | PC.NURSE ---
This RN auscultated bilaterally anterior and posterior lung sounds and was clear throughout.
--- NOTE | 2024-01-11 21:21 | EKG_ITS ---
[place] [id number] [place] [id number] Test Date: 2024-01-11 Pat Name: Rosanne Hernandez Department: [facility] Room: Gender: Female Senior It Business Analyst: FEDERICO Barker : 1985 Requested By: Order Number: [id number] Reading MD: Eduardo Naylor Measurements Intervals [place] Rate: 67 P: 76 ME: 122 QRS: 77 QRSD: 92 T: 74 QT: 472 QTc: 498 Interpretive Statements Normal sinus rhythm Prolonged QT Electronically Signed On 01-12-2024 7:28:33 PDT by Eduardo Naylor
--- NOTE | 2024-01-11 21:22 | ED_ITS ---
HPI - SOB/Dyspnea General Chief Complaint: Shortness of Breath/Dyspnea Stated Complaint: SoB Time Seen by Provider: 01/11/24 20:56 Source: patient Mode of arrival: Ambulatory Limitations: no limitations History of Present Illness HPI Narrative: 38-year-old female presents for shortness of breath. Patient states that for the last 2 days she has felt short of breath, worse when she lays down flat. Ambulation does not make it better or worse. This has never happened before. Patient denies use of OCPs, recent surgeries or immobilizations, denies family history of unprovoked VTE Related Data Previous Rx's Medication Instructions Recorded nicotine 14 mg/24 hr daily 1 patch transdermal DAILY #21 ea 01/30/18 transdermal patch acetaminophen 325 mg tablet 650 mg (2 x 325 mg) PO Q6HR PRN 06/21/18 Pain, Mild (1-3) #30 tabs docusate sodium 250 mg capsule 250 mg PO DAILY #30 caps 06/21/18 ferrous gluconate 324 mg (38 mg 324 mg PO DAILY #30 tabs 06/21/18 iron) tablet bupropion HCl 100 mg tablet,12 hr See Rx Instructions .Route 03/31/20 sustained-release .COMPLEX #90 tabs buspirone 10 mg tablet See Rx Instructions .Route 06/30/20 .COMPLEX #90 tabs ketorolac 10 mg tablet 10 mg PO Q6H PRN pain #14 tabs 10/12/22 Allergies Allergy/AdvReac Type Severity Reaction Status Date / Time codeine [CODEINE] Allergy Unknown Verified 01/11/24 18:25 Patient History Medical History Term Anorexia nervosa (1995) Bipolar disorder (2009) Anemia (2016) Chicken pox (1994) Scoliosis (1993) Anxiety (2007) Depression (2007) PTSD (post-traumatic stress disorder) (2009) Substance abuse (2013) Depression (06/25/17) Generalized anxiety disorder (03/28/17) Tobacco use during Spontaneous vaginal delivery Surgical History No history of previous surgery (03/2017) Family History Brother Age: 33 Mental health problem Grandmother Age: 79 Hypertension High cholesterol Mental health problem Stroke Diabetes mellitus Mother Age: 56 Hypertension Mental health problem Grandfather No problems noted. Social History Smoking Status: Current every day smoker Smoking Status: Current every day smoker alcohol intake frequency: a few times a week Alcohol type: other Substance Use Type: does not use Exam Initial Vital Signs Initial Vital Signs: Vital Signs Temperature 98.3 F 01/11/24 18:21 Pulse Rate 73 01/11/24 18:21 Respiratory Rate 18 01/11/24 18:21 Blood Pressure 126/83 01/11/24 18:21 Pulse Oximetry 100 01/11/24 18:21 Oxygen Delivery Method Room Air 01/11/24 18:21 Const: Awake, alert, no acute distress, nontoxic appearing Cardiac: regular rate, regular rhythm RESP: unlabored, clear bilaterally, no wheezing GI: Soft, nontender, nondistended, no rebound, no guarding MSK: Atraumatic, full range of motion, pulses equal Skin: Warm, Dry, intact, no rashes Neuro: AO x3, CN II-XII grossly intact, moves all extremities Course Orders Ordered: ED Orders 01/11/24 20:55 Respiratory Panel (Film Array) Stat 01/11/24 21:21 Chest [XR chest 2V] Stat EKG-12 Lead Stat Vital Signs Vital signs: Vital Signs - 8 hr 01/11/24 18:21 01/11/24 21:01 01/11/24 21:02 Temperature 98.3 F Pulse Rate 73 98 H 68 Respiratory Rate 18 22 Blood Pressure 126/83 141/64 H Pulse Oximetry 100 100 100 Oxygen Delivery Method Room Air Room Air 01/11/24 21:30 01/11/24 22:00 01/11/24 22:04 Temperature Pulse Rate 67 76 Respiratory Rate 18 Blood Pressure Pulse Oximetry 100 99 99 Oxygen Delivery Method Room Air 01/11/24 22:04 01/11/24 22:49 Temperature Pulse Rate Respiratory Rate 18 Blood Pressure 134/75 Pulse Oximetry Oxygen Delivery Method MDM - SOB/Dyspnea Differential Diagnosis Differential diagnosis: Likely acute exacerbation of chronic obstructive airways disease, community acquired pneumonia and asthma with exacerbation Lab Data Labs: Lab Results 01/11/24 Range/Units 20:55 Chlamy pneumoniae PCR Not detected (Not Detect) Adenovirus (PCR) Not detected (Not Detect) B.parapertussis DNA PCR Not detected (Not Detecte) Coronavirus OC43 (PCR) Not detected (Not Detect) Coronavirus HKU1 (PCR) Not detected (Not Detect) Coronavirus 229E (PCR) Not detected (Not Detect) SARS-CoV-2 (PCR) Not detected (Not Detecte) Coronavirus NL63 (PCR) Not detected (Not Detect) Human Metapneumovir PCR Not detected (Not Detect) Influenza Type A (PCR) Not detected (Not Detect) Influenza Type B (PCR) Not detected (Not Detect) M. pneumoniae (PCR) Not detected (Not Detect) Parainfluenza 1 (PCR) Not detected (Not Detect) Parainfluenza 2 (PCR) Not detected (Not Detect) Parainfluenza 3 (PCR) Not detected (Not Detect) Parainfluenza 4 (PCR) Not detected (Not Detect) RSV (PCR) Not detected (Not Detect) Entero/Rhino (PCR) Not detected (Not Detect) Imaging Data Chest x-ray: Radiologist's Impression: PROCEDURE: XR CHEST 2V INDICATIONS: DYSPNEA TECHNIQUE: 2 views of the chest were acquired. COMPARISON: [facility], , XR CHEST 2V, 03/08/2022, 12:21. FINDINGS: Surgical changes and devices: None. Lungs and pleura: Lungs are clear. No pleural effusions or pneumothorax. Mediastinum: Mediastinal contours are normal. Heart size is normal. Bones and chest wall: No suspicious bony abnormalities. Soft tissues appear unremarkable. IMPRESSION: No acute cardiopulmonary abnormality is seen. Dictated by: Florian Mckenzie M.D. on 01/11/2024 at 22:56 Approved by: Florian Mckenzie M.D. on 01/11/2024 at 22:57 ECG Data Interpretation: Normal sinus rhythm at 67 beats per minute. Normal IL, QTC 498, no ST T wave changes MDM Narrative Medical decision making narrative: Shortness of breath for 2 days. Physical exam is unremarkable, vital signs completely normal. Perc negative. EKG x-ray normal. Patient informed of results, PCP follow up advised Discharge Plan Departure Patient Disposition: Home Clinical Impression: Dyspnea Instructions: DI for Shortness of Breath Activity Restrictions/Additional Instructions: YOUR EKG AND CHEST X-RAY WERE NORMAL TODAY. I DO NOT SEE ANY SUSPICIOUS MASSES, INFECTIONS, OR OTHER ABNORMALITIES. IF YOU CONTINUED TO FEEL SHORT OF BREATH I DO RECOMMEND FOLLOWING UP WITH A PRIMARY CARE DOCTOR. Prescriptions: No Action bupropion HCl 100 mg tablet sustained-release 12 hr See Rx Instructions .ROUTE .COMPLEX Qty: 90 0RF Dose Instruction: TAKE 1 TABLET (100 MG) BY MOUTH THREE TIMES DAILY Rx Instructions: TAKE 1 TABLET (100 MG) BY MOUTH THREE TIMES DAILY; MUST BE SEEN FOR REFILLS buspirone 10 mg tablet See Rx Instructions .ROUTE .COMPLEX Qty: 90 0RF Dose Instruction: TAKE 2 TABLETS BY MOUTH TWICE DAILY Rx Instructions: TAKE 2 TABLETS BY MOUTH TWICE DAILY; PT MUST BE SEEN FOR REFILLS nicotine 14 mg/24 hr patch 24 hour 1 patch Transdermal DAILY Qty: 21 1RF acetaminophen 325 mg Tablet 650 mg PO Q6HR PRN (Reason: Pain, Mild (1-3)) Qty: 30 0RF docusate sodium 250 mg Capsule 250 mg PO DAILY Qty: 30 0RF ferrous gluconate 324 mg (38 mg iron) Tablet 324 mg PO DAILY Qty: 30 0RF ketorolac 10 mg tablet 10 mg PO Q6H PRN (Reason: pain) Qty: 14 0RF Referrals: Savannah Aguirre PA-C [Primary Care Provider] - Stand Alone Forms: Patient Portal/API
[2024-01-11 21:51] LABS: Adenovirus Not Detected (Not Detect); B. parapertussis Not Detected (Not Detecte); Bordetella pertussis Not Detected (Not Detect); Chlamydophila pneumoniae Not Detected (Not Detect); Coronavirus 229E Not Detected (Not Detect); Coronavirus HKU1 Not Detected (Not Detect); Coronavirus NL 63 Not Detected (Not Detect); Coronavirus OC43 Not Detected (Not Detect); Human Metapneumovirus Not Detected (Not Detect); Human Rhinovirus/Enterovirus Not Detected (Not Detect); Influenza A Not Detected (Not Detect); Influenza B Not Detected (Not Detect); Mycoplasma pneumoniae Not Detected (Not Detect); Parainfluenza Virus 1 Not Detected (Not Detect); Parainfluenza Virus 2 Not Detected (Not Detect); Parainfluenza Virus 3 Not Detected (Not Detect); Parainfluenza Virus 4 Not Detected (Not Detect); Respiratory Syncytial Virus Not Detected (Not Detect); SARS- CoV-2 Not Detected (Not Detecte)
== END 2024-01-11 22:49 | disposition home or self-care (01) ==
PROVIDERS: Emergency Provider Emergency Medicine; PCP Physician Assistant
DX: R06.00 Dyspnea, unspecified (principal); R03.0 Elevated blood-pressure reading, without diagnosis of hypertension
CPT/HCPCS: 71046; 87633; 93005; 99281; 99284